=== PATIENT | male | born 1995 | race Caucasian/White ===

== ENCOUNTER 2020-06-27 17:13 | Emergency (ER) | payer SELFPAY ==
[~2020-06-27] VITALS: Ht 172.7 cm; Wt 72.6 kg
[2020-06-27 19:44] VITALS: BP 137/90
== END 2020-06-27 21:24 | disposition home or self-care (01) ==
LOC: ER 17:13
DX: S52.124A Nondisplaced fracture of head of right radius, initial encounter for closed fracture (principal); V00.131A Fall from skateboard, initial encounter; Y93.51 Activity, roller skating (inline) and skateboarding; Y92.89 Other specified places as the place of occurrence of the external cause; Y99.8 Other external cause status
CPT/HCPCS: 29125; 73080